=== PATIENT | male | born 2000 | race Caucasian/White ===

== ENCOUNTER 2019-03-30 05:12 | Emergency (ER) | payer OTHER ==
--- NOTE | 2019-03-30 05:31 | EDPHY ---
H & P Stated Complaint: High BP & palpitations Time Seen by Provider: 03/30/19 05:31 HPI/ROS: HPI CHIEF COMPLAINT: Palpitations, anxiety. HISTORY OF PRESENT ILLNESS: Patient is a 19-year-old male, presents emergency room stating that he has been taking Vyvanse and Adderall to study. He took 50 mg of Adderall yesterday in 10 mg of Vyvanse. He states he has notice palpitations and racing heart. Also noticed that his blood pressures been high. He does feel anxious. He denies any chest pain or shortness of breath. He woke up tonight feeling anxious, states he looked in the mirror and thought that he was yellow. He is concerned after reading online that he may have kidney failure liver failure. He has no other reason to have kidney or liver failure. He denies drug use or ingestion of toxins. He is very anxious. Past Medical History: Denies significant medical history Past Surgical History: Denies significant surgical history Social History: Denies drugs alcohol tobacco. Has been using Vyvanse and Adderall. Not prescribed. Family History: Noncontributory ROS REVIEW OF SYSTEMS: 10 Systems were reviewed and negative with the exception of the elements mentioned in the history of present illness. Exam Constitutional anxious triage nursing summary reviewed, vital signs reviewed, awake/alert. Slightly tachycardic and hypertensive upon arrival. Eyes normal conjunctivae and sclera, EOMI, PERRLA. HENT normal inspection, atraumatic, moist mucus membranes, no epistaxis, neck supple/ no meningismus, no raccoon eyes. Respiratory clear to auscultation bilaterally, normal breath sounds, no respiratory distress, no wheezing. Cardiovascular tachycardia regular rhythm, no murmur, no edema, distal pulses normal. Gastrointestinal soft, non-tender, no rebound, no guarding, normal bowel sounds, no distension, no pulsatile mass. Genitourinary no CVA tenderness. Musculoskeletal no midline vertebral tenderness, full range of motion, no calf swelling, no tenderness of extremities, no meningismus, good pulses, neurovascularly intact. Skin pink, warm, & dry, no rash, skin atraumatic. Neurologic awake, alert and oriented x 3, AAOx3, moves all 4 extremities equally, motor intact, sensory intact, CN II-XII intact, normal cerebellar, normal vision, normal speech. Psychiatric normal mood/affect. Heme/Lymph/Immune no lymphadenopathy. Differential Diagnosis: Includes but is not limited to in a particular order palpitations, electrolyte disturbance, dehydration, cardiac arrhythmia, stimulant abuse Medical Decision Making: Plan for this patient IV establishment IV fluid bolus , basic labs, EKG due to palpitations, basic electrolytes, kidney function liver function and re-evaluate. Re-evaluation: Trop 0.00 EKG: Time of EKG 5:52 a.m., sinus rhythm rate of 88, no signs of acute ischemia unremarkable EKG. No signs of cardiac arrhythmia. Patient's EKG reviewed and is sinus rhythm rate of 88, no signs of cardiac arrhythmia or acute ischemia no signs of WPW or Brugada. Rather unremarkable EKG. Patient's troponin was 0.00 Patient's labs reviewed, normal kidney function, normal electrolytes I do believe the patient's palpitations, and somewhat anxiety has to do with him taking too much Vyvanse and Adderall not prescribed to him. I do recommend he refrain from taking this, additionally recommend he follows up outpatient for palpitations with Cardiology. I discussed this with him he is comfortable with being discharged uncomfortable with return precautions. Is also noted that his blood pressure was slightly high here. 158/86. I do recommend he keeps a close eye on this and follows up with PCP/Cardiology. Chest x-ray one view reviewed by myself negative for acute cardiopulmonary disease. Did discuss the patient's lab results with him including his AST and ALT. Do recommend he follows up with his primary care doctor about slightly elevated ALT. 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 Troponin negative. EKG unremarkable. Chest x-ray unremarkable Return precautions discussed. Source: Patient - Personal History Current Tetanus/Diphtheria Vaccine: Yes Current Tetanus Diphtheria and Acellular Pertussis (TDAP): Yes - Medical/Surgical History Hx Asthma: No Hx Chronic Respiratory Disease: No Hx Diabetes: No Hx Cardiac Disease: No Hx Renal Disease: No Hx Cirrhosis: No Hx Alcoholism: No Hx HIV/AIDS: No Hx Splenectomy or Spleen Trauma: No Other PMH: none - Social History Smoking Status: Never smoked Constitutional: Initial Vital Signs Temperature (C) 36.8 C 03/30/19 05:25 Heart Rate 109 H 03/30/19 05:25 Respiratory Rate 18 03/30/19 05:25 Blood Pressure 165/124 H 03/30/19 05:25 O2 Sat (%) 97 03/30/19 05:25 O2 Delivery Mode Room Air Allergies/Adverse Reactions: No Known Allergies Allergy (Unverified 03/30/19 05:22) Home Medications: Medication Instructions Recorded NK [No Known Home Meds] 03/30/19 Medical Decision Making - Data Points Laboratory Results: Laboratory Results 03/30/19 05:45 03/30/19 05:45 03/30/19 03/30/19 03/30/19 06:50 05:48 05:45 WBC RBC Hgb Hct MCV MCH MCHC RDW Plt Count MPV Neut % (Auto) Lymph % (Auto) [place] % (Auto) Eos % (Auto) Baso % (Auto) Nucleat RBC Rel Count Absolute Neuts (auto) Absolute Lymphs (auto) Absolute Monos (auto) Absolute Eos (auto) Absolute Basos (auto) Absolute Nucleated RBC Immature Gran % Immature Gran # Sodium 140 mEq/L mEq/L (135-145) Potassium 3.9 mEq/L mEq/L (3.5-5.2) Chloride 101 mEq/L mEq/L (97-110) Carbon Dioxide 26 mEq/l mEq/l (22-31) Anion Gap 13 mEq/L mEq/L (6-14) BUN 13 mg/dL mg/dL (7-23) Creatinine 1.0 mg/dL mg/dL (0.7-1.3) Estimated GFR > 60 Glucose 111 mg/dL H mg/dL (70-100) Calcium 10.3 mg/dL mg/dL (8.5-10.4) Total Bilirubin 2.2 mg/dL H mg/dL (0.1-1.4) Conjugated Bilirubin 0.1 mg/dL mg/dL (0.0-0.5) Unconjugated Bilirubin 2.1 mg/dL H mg/dL (0.0-1.1) AST 42 IU/L IU/L (17-59) ALT 119 IU/L H IU/L (21-72) Alkaline Phosphatase 62 IU/L IU/L (38-126) POC Troponin I 0.00 ng/mL ng/mL (0.00-0.08) Total Protein 7.9 g/dL g/dL (6.3-8.2) Albumin 5.1 g/dL H g/dL (3.5-5.0) Urine Color COLORLESS Urine Appearance CLEAR Urine pH 7.0 (5.0-7.5) Ur Specific [place] 1.001 L (1.002-1.030) Urine Protein NEGATIVE (NEGATIVE) Urine Ketones NEGATIVE (NEGATIVE) Urine Blood NEGATIVE (NEGATIVE) Urine Nitrate NEGATIVE (NEGATIVE) Urine Bilirubin NEGATIVE (NEGATIVE) Urine Urobilinogen NEGATIVE EU EU (0.2-1.0) Ur Leukocyte Esterase NEGATIVE (NEGATIVE) Urine Glucose NEGATIVE (NEGATIVE) Salicylates < 1.0 mg/dL L mg/dL (2.0-20.0) Acetaminophen < 10 mcg/mL L mcg/mL (10-30) 03/30/19 05:45 WBC 5.84 10^3/uL 10^3/uL (3.80-9.50) RBC 5.97 10^6/uL 10^6/uL (4.40-6.38) Hgb 18.3 g/dL H g/dL (13.7-17.5) Hct 51.1 % H % (40.0-51.0) MCV 85.6 fL fL (81.5-99.8) MCH 30.7 pg pg (27.9-34.1) MCHC 35.8 g/dL g/dL (32.4-36.7) RDW 11.6 % % (11.5-15.2) Plt Count 245 10^3/uL 10^3/uL (150-400) MPV 10.2 fL fL (8.7-11.7) Neut % (Auto) 59.5 % % (39.3-74.2) Lymph % (Auto) 27.9 % % (15.0-45.0) [place] % (Auto) 10.3 % % (4.5-13.0) Eos % (Auto) 1.4 % % (0.6-7.6) Baso % (Auto) 0.7 % % (0.3-1.7) Nucleat RBC Rel Count 0.0 % % (0.0-0.2) Absolute Neuts (auto) 3.48 10^3/uL 10^3/uL (1.70-6.50) Absolute Lymphs (auto) 1.63 10^3/uL 10^3/uL (1.00-3.00) Absolute Monos (auto) 0.60 10^3/uL 10^3/uL (0.30-0.80) Absolute Eos (auto) 0.08 10^3/uL 10^3/uL (0.03-0.40) Absolute Basos (auto) 0.04 10^3/uL 10^3/uL (0.02-0.10) Absolute Nucleated RBC 0.00 10^3/uL 10^3/uL (0-0.01) Immature Gran % 0.2 % % (0.0-1.1) Immature Gran # 0.01 10^3/uL 10^3/uL (0.00-0.10) Sodium Potassium Chloride Carbon Dioxide Anion Gap BUN Creatinine Estimated GFR Glucose Calcium Total Bilirubin Conjugated Bilirubin Unconjugated Bilirubin AST ALT Alkaline Phosphatase POC Troponin I Total Protein Albumin Urine Color Urine Appearance Urine pH Ur Specific [place] Urine Protein Urine Ketones Urine Blood Urine Nitrate Urine Bilirubin Urine Urobilinogen Ur Leukocyte Esterase Urine Glucose Salicylates Acetaminophen Medications Given: Discontinued Medications Sodium Chloride (Ns) 1,000 mls @ 0 mls/hr IV EDNOW ONE; Wide Open PRN Reason: Protocol Stop: 03/30/19 05:34 Last Admin: 03/30/19 05:50 Dose: 1,000 mls Lorazepam (Ativan Injection) 0.5 mg IVP EDNOW ONE Stop: 03/30/19 05:41 Last Admin: 03/30/19 05:50 Dose: 0.5 mg Point of Care Test Results: Chemistry 03/30/19 05:48 POC Troponin I 0.00 ng/mL ng/mL (0.00-0.08) Departure - Departure Disposition: Home, Routine, Self-Care Clinical Impression: Palpitations Condition: Good Instructions: Heart Palpitations (ED) Additional Instructions: 1. Rest and stay well-hydrated drink lots of fluids. 2. Return to the emergency room if he develops further racing heart, passing out , chest pain 3. I would refrain from stimulants like Adderall, Vyvanse, large amounts of caffeine. This may be contributing to her heart racing 4. You may follow up with Cardiology for palpitations 5. Was also noted her blood pressure was slightly high here in the 150s. Please keep a close eye on this. Referrals: ALTHEA TREVIZO [Other] - As per Instructions Rashaad Ruiz MD [Medical Doctor] - As per Instructions
[2019-03-30] MEDS ORDERED: NS 1,000 ML IV ONE (05:33)
[2019-03-30] MEDS ORDERED: LORazepam 2 MG/ML INJ IVP ONE (05:40)
[2019-03-30 05:54] LABS: PLATELET COUNT 245 10^3/uL (150-400)
[2019-03-30 08:30] VITALS: BP 167/109
--- NOTE | 2019-03-31 08:23 | CPEKG ---
Test Reason : OPEN Blood Pressure : / mmHG Vent. Rate : 088 BPM Atrial Rate : 088 BPM P-R Int : 135 ms QRS Dur : 087 ms QT Int : 380 ms P-R-T Axes : 044 019 034 degrees QTc Int : 460 ms Sinus rhythm Confirmed by Herman Littlejohn ([id number]) on 03/31/2019 8:23:09 AM Referred By: Herman Littlejohn Confirmed By:Herman Littlejohn
== END 2019-03-30 08:39 | disposition home or self-care (01) ==
DX: R00.2 Palpitations (principal); F41.9 Anxiety disorder, unspecified; E86.9 Volume depletion, unspecified
CPT/HCPCS: 84484-ER; 96374; G0480; J2060